=== PATIENT | female | born 1995 | race Two or more races ===

== ENCOUNTER 2016-10-12 09:06 | Emergency (ER) | payer MEDICAID, OTHER ==
[~2016-10-12] VITALS: Ht 162.6 cm; Wt 80.3 kg
[~2016-10-12 09:06] MED LIST: FERR325T PO; PREN-96 PO
[2016-10-12 09:25] VITALS: BP 138/77
== END 2016-10-12 10:10 | disposition home or self-care (01) ==
LOC: ER 09:06
DX: R07.89 Other chest pain (principal)
CPT/HCPCS: 71020; 93005